=== PATIENT | female | born 1995 | race African-American/Black ===

== ENCOUNTER 2018-03-21 15:15 | Emergency (ER) | payer SELFPAY ==
[~2018-03-21] VITALS: Ht 157.5 cm; Wt 100.0 kg
[2018-03-21 15:36] VITALS: BP 148/83; PULSE 87; RESP 17; TEMP 98.4; O2SAT 97
--- NOTE | 2018-03-21 16:34 | PD ---
HPI Chief Complaint: Anxiety Time Seen by Provider: 16:18 Travel History International Travel<30 days: No Contact w/Intl Traveler<30days: No Traveled to known affect area: No History of Present Illness HPI 22-year-old female presents emergency department with first-time episode of what she describes as an anxiety attack. Patient states since this morning she has had increased symptoms of anxiety, palpitations, and fast heart rate. She denies any chest pain, shortness of breath, or nausea or vomiting. She denies as she is currently on her period. She states she has never had anxiety problems in the past. Patient states she did call the ambulance who came and assessed her and said that she may have a "thyroid problem" and recommended she get checked out. Patient states he currently feels normal. Patient denies recent increased anxiety or stressors. She has no previous history of heart issues as a child or recently. She currently has no complaints of pain or anxiety. She has no known drug allergies. PFSH Past Medical History Medical History: Denies Significant Hx Diminished Hearing: No Tetanus Vaccination: Unknown Influenza Vaccination: Yes ?: Not LMP: 02/2018 : 0 Para: 0 Miscarriage: 0 : 0 Past Surgical History Surgical History: No Previous Surgery Social History Alcohol Use: No Tobacco Use: No Substance Use: No Allergies-Medications (Allergen,Severity, Reaction): Coded Allergies: No Known Allergies (Verified Allergy, Unknown, 03/21/18) Reported Meds & Prescriptions Reported Meds & Active Scripts Active No Active Prescriptions or Reported Medications Review of Systems Except as stated in HPI: all other systems reviewed are Neg General / Constitutional: No: Fever Eyes: No: Visual changes HENT: No: Headaches Cardiovascular: Positive: Palpitations (See history of present illness per), No : Chest Pain or Discomfort Respiratory: No: Shortness of Breath Gastrointestinal: No: Abdominal Pain Genitourinary: No: Dysuria Musculoskeletal: No: Pain Skin: No Rash Neurologic: No: Weakness Psychiatric: Positive: Anxiety, No: Depression, Suicidal Ideations (See history of present illness), Substance Abuse, Homicidal Ideation Endocrine: No: Polydipsia Hematologic/Lymphatic: No: Easy Bruising Physical Exam Narrative GENERAL: Patient appears in no acute distress. SKIN: Warm and dry. Normal color. Normal turgor. HEAD: Atraumatic. Normocephalic. EYES: Pupils equal and round. No scleral icterus. No injection or drainage. ENT: No nasal bleeding or discharge. Mucous membranes pink and moist. Pharynx is clear. Airways patent NECK: Trachea midline. Supple and nontender without significant lymphadenopathy. No palpable thyroid. CARDIOVASCULAR: Regular rate and rhythm. RESPIRATORY: No accessory muscle use. Clear to auscultation. Breath sounds equal bilaterally. GASTROINTESTINAL: Abdomen soft, non-tender, nondistended. Hepatic and splenic margins not palpable. MUSCULOSKELETAL: Extremities without clubbing, cyanosis, or edema. No obvious deformities. NEUROLOGICAL: Awake and alert. No obvious cranial nerve deficits. Motor grossly within normal limits. Five out of 5 muscle strength in the arms and legs. Normal speech. PSYCHIATRIC: Appropriate mood and affect; insight and judgment normal. Data Data Last Documented VS Vital Signs Date Time Temp Pulse Resp B/P (MAP) Pulse Ox O2 Delivery O2 Flow Rate FiO2 03/21/18 15:36 98.4 87 17 148/83 (104) 97 MDM Medical Decision Making Medical Screen Exam Complete: Yes Emergency Medical Condition: No Differential Diagnosis Anxiety. Palpitations. Possible thyroid issue. Narrative Course A medical screening exam was performed: At the time of evaluation the presenting medical condition was determined not to be of an emergent nature. The patient was given the option of receiving additional care, but declined. Patient was given options for additional community resources from which to obtain care. The Patient Has Been advised to seek medical attention for their presenting complaint. The patient has been advised to return to the ER at any time if an emergent condition develops. Scripts No Active Prescriptions or Reported Meds Condition: Stable Andrés Randle March 21, 2018 16:34
== END 2018-03-21 16:36 | disposition left against medical advice (07) ==
LOC: NEPD 15:15
DX: F41.9 Anxiety disorder, unspecified (principal)
CPT/HCPCS: 99281